=== PATIENT | male | born 1990 | race Caucasian/White ===

== ENCOUNTER 2018-02-16 03:15 | Emergency (ER) | payer SELFPAY ==
[2018-02-16] MEDS ORDERED: Bupivacaine 0.5% 10 ML VIAL ONE (03:31)
[2018-02-16] MEDS ORDERED: HYDROcodone/Acetaminophen 5/325 mg Tablet ONE (03:44)
[2018-02-16] MEDS ORDERED: Penicillin V Potassium 250 MG TAB ONE (03:45)
== END 2018-02-16 03:55 | disposition home or self-care (01) ==
LOC: NAV ERS 03:15
DX: K04.7 Periapical abscess without sinus (principal); Z87.891 Personal history of nicotine dependence
CPT/HCPCS: 64400; J3490

== ENCOUNTER 2018-08-24 16:28 | Emergency (ER) | payer SELFPAY | END 2018-08-24 16:49 | disposition home or self-care (01) | LOC: NAV ERS 16:28 | DX: K02.9 Dental caries, unspecified (principal); I10 Essential (primary) hypertension; F17.210 Nicotine dependence, cigarettes, uncomplicated | CPT/HCPCS: 99281 ==